=== PATIENT | female | born 1980 | race Caucasian/White ===

== ENCOUNTER → 2017-05-13 | Outpatient (CLI) | payer OTHER | LOC: M SMT 10:41 | DX: N39.0 Urinary tract infection, site not specified (principal); R10.9 Unspecified abdominal pain ==

== ENCOUNTER → 2017-05-31 | Outpatient (REF) | payer OTHER ==
[2017-06-03 00:06] LABS: Candida species Negative (Negative); Gardnerella vaginalis Negative (Negative); Trichamonas vaginalis Negative (Negative)
== END ==
LOC: M SMT 17:00
DX: R30.0 Dysuria (principal)
CPT/HCPCS: 87480

== ENCOUNTER → 2017-06-04 | Outpatient (CLI) | payer OTHER | LOC: M RAD 15:48 | DX: N20.0 Calculus of kidney (principal); Z96.0 Presence of urogenital implants ==

== ENCOUNTER 2017-06-05 17:51 | Emergency (ER) | payer OTHER ==
[2017-06-05 21:00] LABS: BASO % 0.3 % (0.0-1.0); EOS # 0.1 10^3/uL (0.0-0.50); EOS % 0.8 % (0.0-3.0); HEMATOCRIT 40.3 % (36.0-47.0); HEMOGLOBIN 13.6 g/dl (12.0-16.0); IMMATURE GRANULOCYTE % 0.2 % (0-3.0); LYMPH # 2.5 10^3/uL (1.5-4.5); LYMPH % 25.7 % (24.0-44.0); MEAN CORPUSCULAR HEMOGLOBIN 30.2 pg (27.0-33.0); MEAN CORPUSCULAR HGB CONC 33.7 g/dl (32.0-36.5); MEAN CORPUSCULAR VOLUME 89.6 fl (80.0-96.0); MONO # 0.6 10^3/uL (0.0-0.8); MONO % 6.1 % (0.0-5.0); NEUTROPHILS # 6.5 10^3/uL (1.8-7.7); NEUTROPHILS % 66.9 % (36.0-66.0); PLATELET COUNT, AUTOMATED 245 10^3/uL (150-450); RED CELL DISTRIBUTION WIDTH 12.6 % (11.5-14.5); WHITE BLOOD COUNT 9.7 10^3/uL (4.0-10.0)
[2017-06-05 21:11] LABS: PROTHROMBIN TIME 13.3 SECONDS (12.4-14.5)
[2017-06-05 21:29] LABS: ALBUMIN 4.4 GM/DL (3.2-5.2); ALBUMIN/GLOBULIN RATIO 1.22 (1.00-1.93); ALKALINE PHOSPHATASE 68 U/L (45-117); ALT/SGPT 19 U/L (12-78); ANION GAP 8 MEQ/L (8-16); AST/SGOT 8 U/L (7-37); BILIRUBIN,TOTAL 0.3 MG/DL (0.2-1.0); BLOOD UREA NITROGEN 21 MG/DL (7-18); C REACTIVE PROTEIN QUANTITATIV < 0.30 MG/DL (0.00-0.30); CALCIUM LEVEL 8.8 MG/DL (8.5-10.1); CARBON DIOXIDE LEVEL 26 MEQ/L (21-32); CHLORIDE LEVEL 104 MEQ/L (98-107); GLOMERULAR FILTRATION RATE > 60.0 (>60); GLUCOSE, FASTING 92 MG/DL (70-100); MAGNESIUM LEVEL 1.8 MG/DL (1.8-2.4); POTASSIUM SERUM 3.7 MEQ/L (3.5-5.1); SODIUM LEVEL 138 MEQ/L (136-145)
== END 2017-06-06 00:44 | disposition home or self-care (01) ==
LOC: M ED 06-06 00:44
DX: M54.16 Radiculopathy, lumbar region (principal); S34.21XD Injury of nerve root of lumbar spine, subsequent encounter; X58.XXXD Exposure to other specified factors, subsequent encounter; G93.2 Benign intracranial hypertension; K21.9 Gastro-esophageal reflux disease without esophagitis; F32.9 Major depressive disorder, single episode, unspecified; Z98.2 Presence of cerebrospinal fluid drainage device; Z88.5 Allergy status to narcotic agent; Z88.0 Allergy status to penicillin; Z91.040 Latex allergy status; Z91.048 Other nonmedicinal substance allergy status; Z79.899 Other long term (current) drug therapy
CPT/HCPCS: 83735